=== PATIENT | female | born 1995 | race Asian ===

== ENCOUNTER 2018-04-26 09:03 | Outpatient (CLI) | payer BC ==
[~2018-04-26 09:03] MED LIST: ACET-689 PO; AMOX500C85 PO; NAPROSYN500 MG PO; PERIDEX0.12 % MT
== END 2018-04-26 19:09 | disposition home or self-care (01) ==
LOC: RAD 09:03
DX: M53.3 Sacrococcygeal disorders, not elsewhere classified (principal)